=== PATIENT | female | born 1950 | race Caucasian/White ===

== ENCOUNTER 2017-10-14 22:25 | Emergency (ER) | payer MEDICARE ==
[~2017-10-14] VITALS: Ht 167.6 cm; Wt 74.8 kg
--- NOTE | 2017-10-14 22:44 | NUR ---
66 Y/O FEMALE PLACED IN BED 8 C/O RIGHT HAND PAIN, POSSIBLE FRACTURE.
--- NOTE | 2017-10-14 23:26 | NUR ---
RECEIVED REPORT FROM JOVANI FLEMING FOR [facility].
[2017-10-14] MEDS ORDERED: ACETAMINOPHEN 325 MG TABLET ONE (23:27)
[2017-10-14] MEDS ORDERED: ACETAMINOPHEN 325 MG TABLET PO ONE (23:30)
--- NOTE | 2017-10-15 00:07 | NUR ---
SALEEM CEDENO AT BEDSIDE SPEAKING TO PT REGARDING RESULTS
--- NOTE | 2017-10-15 00:59 | NUR ---
Patient discharged to home in stable condition. Written and verbal after care instructions given. Patient verbalizes understanding of instruction. ambulatory with a steady gait
[2017-10-15 01:00] VITALS: BP 158/62
== END 2017-10-15 01:00 | disposition home or self-care (01) ==
LOC: ER 22:29
DX: S63.612A Unspecified sprain of right middle finger, initial encounter (principal); Z88.6 Allergy status to analgesic agent; Z88.1 Allergy status to other antibiotic agents; X50.9XXA Other and unspecified overexertion or strenuous movements or postures, initial encounter; Y93.89 Activity, other specified; Y92.89 Other specified places as the place of occurrence of the external cause; Y99.8 Other external cause status
CPT/HCPCS: 29130; 73130; 99284; A4606; Z7610